=== PATIENT | female | born 1990 | race Two or more races ===

== ENCOUNTER 2017-08-01 09:54 | Emergency (ER) | payer MEDICAID ==
[~2017-08-01] VITALS: Ht 160 cm; Wt 63.5 kg
[2017-08-01 11:08] LABS: Albumin 3.7 g/dL (3.4-5.0); BUN/Creatinine Ratio 18.2; Bilirubin, Total 0.3 mg/dL (0.2-1.0); Calcium 8.7 mg/dL (8.5-10.1); Potassium 4.1 mmol/L (3.5-5.1); Total Protein 7.5 g/dL (6.4-8.2)
[2017-08-01 11:39] LABS: Basophils # (auto) 0.1 uL; Basophils % (auto) 0.6 % (0.0-2.0); Eosinophils # (auto) 0.1 uL; Eosinophils % (auto) 1.1 % (0.0-7.0); Hematocrit 39.6 % (36.0-46.0); Hemoglobin 13.6 g/dL (12.2-16.2); Lymphocytes # (auto) 1.1 uL; Lymphocytes % (auto) 10.5 % (10.0-50.0); Mean Corpuscular Hemoglobin 30.9 pg (28.0-32.0); Mean Corpuscular Hgb Conc. 34.2 g/dL (32.0-36.0); Mean Corpuscular Volume 90.3 fL (80.0-100.0); Mean Platelet Volume 9.1 fL (6.9-10.8); Monocytes # (auto) 0.4 uL; Monocytes % (auto) 4.3 % (0.0-12.0); Neutrophils # (auto) 8.7 uL; Neutrophils % (auto) 83.5 % (37.0-80.0); Platelet Count (auto) 309 10^3/uL (140-450); Red Cell Distribution Width 11.8 % (11.8-14.3); White Blood Cell 10.4 10^3/uL (4.4-10.8)
[2017-08-01 13:20] VITALS: BP 133/90
== END 2017-08-01 13:51 | disposition home or self-care (01) ==
LOC: ER 09:54
DX: O20.0 Threatened abortion (principal); Z3A.08 8 weeks gestation of pregnancy
CPT/HCPCS: 36415; 76801; 76817; 80053; 84702; 85025; 86900; 86901; 94761

== ENCOUNTER 2023-08-19 15:25 | Emergency (ER) | payer MEDICAID ==
[~2023-08-19] VITALS: Ht 160 cm; Wt 79.4 kg
[2023-08-19 15:35] VITALS: BP 135/95; PULSE 118; RESP 16; TEMP 98.4; O2SAT 96
== END 2023-08-19 16:50 | disposition home or self-care (01) ==
LOC: ER 15:25
DX: S61.511A Laceration without foreign body of right wrist, initial encounter (principal); Z87.891 Personal history of nicotine dependence; W18.02XA Striking against glass with subsequent fall, initial encounter; Y93.89 Activity, other specified; Y92.89 Other specified places as the place of occurrence of the external cause; Y99.8 Other external cause status
CPT/HCPCS: 12001

== ENCOUNTER 2023-08-28 14:56 | Emergency (ER) | payer MEDICAID ==
[~2023-08-28] VITALS: Ht 160 cm; Wt 77.8 kg
[2023-08-28] MEDS ORDERED: MUPI2OIN2 EX (16:54)
[2023-08-28 17:34] VITALS: BP 133/92; PULSE 96; RESP 18; TEMP 98.6; O2SAT 97
== END 2023-08-28 17:36 | disposition home or self-care (01) ==
LOC: ER 14:56
DX: S61.511D Laceration without foreign body of right wrist, subsequent encounter (principal); X58.XXXD Exposure to other specified factors, subsequent encounter